=== PATIENT | female | born 1995 | race Two or more races ===

== ENCOUNTER 2023-06-13 19:00 | Observation (INO) | payer MEDICAID ==
[~2023-06-13] VITALS: Ht 165.1 cm; Wt 93.4 kg
[2023-06-13 19:37] VITALS: BP 115/58; PULSE 78; RESP 18; TEMP 98.6
== END 2023-06-13 20:30 | disposition home or self-care (01) ==
LOC: MLD 19:00
PROVIDERS: ADMIT Obstetrics & Gynecology; ATTEND Obstetrics & Gynecology
DX: O26.892 Other specified pregnancy related conditions, second trimester (principal); R10.9 Unspecified abdominal pain; R06.02 Shortness of breath; R53.1 Weakness; Z3A.22 22 weeks gestation of pregnancy; Z91.018 Allergy to other foods
CPT/HCPCS: G0378; G0379; 81000